=== PATIENT | male | born 1995 | race Caucasian/White ===

== ENCOUNTER 2024-12-21 19:44 | Day surgery (SDC) | payer BC, OTHER ==
[2024-12-21] MEDS ORDERED: Sodium Chloride 0.9% 10 ML Syringe FLUSH PRN (19:59)
[2024-12-21] MEDS: Iopamidol 612 MG/ML 100 ML Bottle IVPUSH ONE (20:31)
[2024-12-21 20:34] LABS: A/G RATIO 1.1 (1-2); ALANINE AMINOTRANSFERASE,ALT 24.0 U/L (16-63); ASPARTATE AMNIOTRANSFERASE,AST 18.0 U/L (15-37); BILIRUBIN TOTAL 2.5 mg/dL (0.2-1.0); BLOOD UREA NITROGEN,BUN 13.0 mg/dL (7-18); CARBON DIOXIDE,CO2 31.0 mEq/L (21-32); CHLORIDE,CL 101.0 mEq/L (98-107); CREATININE 1.0 mg/dL (0.7-1.3); EST CRCL DRUG DOSING (CG) 129.01 mL/min; ESTIMATED GFR 106.0 mL/min (>60); GLUCOSE RANDOM 105.0 mg/dL (70-99); POTASSIUM,K 3.5 mEq/L (3.5-5.1); PROTEIN TOTAL,TP 7.9 g/dl (6.4-8.2); SODIUM,NA 139.0 mEq/L (136-145)
[2024-12-21] MEDS ORDERED: Ondansetron 4 MG/2 ML SDV IVPUSH PRN (21:42)
[2024-12-22] MEDS ORDERED: Succinylcholine 200 MG/10 ML MDV ONE (05:52)
[2024-12-22] MEDS ORDERED: Ondansetron 4 MG/2 ML SDV ONE (05:52)
[2024-12-22] MEDS ORDERED: fentaNYL 100 MCG/2 ML SDV ONE ×2 (05:52→06:40)
[2024-12-22] MEDS ORDERED: Dexamethasone 4 MG/ML 5 ML MDV ONE (05:52)
[2024-12-22] MEDS ORDERED: Propofol 200 MG/20 ML SDV ONE (05:52)
[2024-12-22] MEDS ORDERED: Lactated Ringers 1,000 ML IV ONE ×2 (06:29→09:15)
[2024-12-22] MEDS ORDERED: fentaNYL 100 MCG/2 ML SDV IVPUSH PRN (07:31)
[2024-12-22] MEDS: EPINEPHrine 1 MG/ML SDV ONE (08:08)
== END 2024-12-22 09:10 | disposition home or self-care (01) ==
LOC: JD.ED 19:44 → JD.SDS 12-22 06:28
PROVIDERS: ATTEND Surgery
DX: K35.30 Acute appendicitis with localized peritonitis, without perforation or gangrene (principal)
CPT/HCPCS: 36415; 44970; 74177; 80053; 86140; 96361; 96365; 99285; A9270; J0169; J0330; J0665; J1100; J2003; J2405; J2543; J2704; J3010; J7030; J7120; Q9967; 00840; 99283; J3490